=== PATIENT | male | born 1930 | race Hispanic/Latino ===

== ENCOUNTER 2017-09-16 11:12 | Emergency (ER) | payer MEDICARE, OTHER ==
[2017-09-16 11:56] VITALS: BP 146/84; PULSE 69; RESP 20; TEMP 97.6; O2SAT 95
--- NOTE | 2017-09-16 12:17 | C.PDOC ---
History Of Present Illness 87 year old male presents to the ED for evaluation of an itchy rash which began 2 weeks ago. Patient states the rash initially began on his left forearm and has progressed to his right forearm, neck, and facial area. He reports experiencing similar symptoms in the past; he was seen by a doctor and prescribed a cream (name unknown) which helped his symptoms. Patient denies fever, chills, pain. Time Seen by Provider: 09/16/17 12:06 Chief Complaint (Nursing): Abnormal Skin Integrity History Per: Patient History/Exam Limitations: no limitations Onset/Duration Of Symptoms: Other (2 weeks ) Current Symptoms Are (Timing): Still Present Location Of Injury: Right: Arm, Left: Arm, Anterior: Face, Neck Quality Of Symptoms: denies: Painful Additional History Per: Patient Past Medical History Reviewed: Historical Data, Nursing Documentation, Vital Signs Vital Signs: Last Vital Signs Temp 97.6 F 09/16/17 11:52 Pulse 69 09/16/17 11:52 Resp 20 09/16/17 11:52 BP 146/84 09/16/17 11:52 Pulse Ox 95 09/16/17 14:49 - Medical History PMH: Asthma, HTN, Hypercholesterolemia, Hypothyroidism - [facility] Procedures APPLICATION OF SPLINT (11/05/14) Family History: States: Unknown Family Hx - Social History Hx Tobacco Use: No Hx Alcohol Use: Yes Hx Substance Use: No - Immunization History Hx Tetanus Toxoid Vaccination: No Hx Influenza Vaccination: No Hx Pneumococcal Vaccination: No Review Of Systems Constitutional: Negative for: Fever, Chills Skin: Positive for: Rash Physical Exam - Physical Exam Appears: Non-toxic, No Acute Distress Skin: Warm, Dry, Rash (scattered, hyperpigmented scaly lesions to bilateral arms. erythematous base to left forearm ) Head: Atraumatic, Normacephalic, Other (irregular hyperkeratotic flaky lesion to left side of face with mild erythema and excoriations ) Eye(s): bilateral: Normal Inspection Oral Mucosa: Moist Neck: Supple Chest: Symmetrical, No Deformity, No Tenderness Cardiovascular: Rhythm Regular, No Murmur Respiratory: Normal Breath Sounds, No Rales, No Rhonchi, No Wheezing Extremity: Normal ROM, Capillary Refill (less than 2 seconds ) Neurological/Psych: Oriented x3, Normal Speech, Normal Cognition Gait: Steady ED Course And Treatment O2 Sat by Pulse Oximetry: 95 (on RA) Pulse Ox Interpretation: Normal Medical Decision Making Medical Decision Making: Patient's skin rash appears to be likely tinea versicolor. Will prescribe ketoconazole to apply to affected areas. Discussed with patient that his face lesion appears irregular and informed him that it is very important to follow up with cmm operator for further evaluation. Patient was provided with a copy of local providers and number for [facility] [employer] specialist services. Patient verbalized understanding and states he will follow up within 1 -2 days for further evaluation. Disposition Counseled Patient/Family Regarding: Diagnosis, Need For Followup, Rx Given - Disposition Referrals: Mitch Snell MD [Staff Provider] - [facility] [Outside] Disposition: HOME/ ROUTINE Disposition Time: 12:21 Condition: GOOD Additional Instructions: Apply cream to affected areas twice daily for 2-3 weeks You need to follow up with cmm operator You may call [facility] for any assistance [phone] in finding a doctor Prescriptions: Ketoconazole 2% Cr [Nizoral] 1 appl TP BID #1 tube Instructions: Tinea Versicolor (ED) Forms: [employer] (Turkish) - POA Present On Arrival: None - Clinical Impression Clinical Impression: Tinea versicolor - PA / [employer] / Resident Statement MD/DO has reviewed & agrees with the documentation as recorded. - Scribe Statement The provider has reviewed the documentation as recorded by the Scribe (Kezia Uriostegui) All medical record entries made by the Scribe were at my direction and personally dictated by me. I have reviewed the chart and agree that the record accurately reflects my personal performance of the history, physical exam, medical decision making, and the department course for this patient. I have also personally directed, reviewed, and agree with the discharge instructions and disposition.
== END 2017-09-16 13:23 | disposition home or self-care (01) ==
LOC: C.ER 11:12
DX: B36.0 Pityriasis versicolor (principal)